=== PATIENT | female | born 1995 | race Caucasian/White ===

== ENCOUNTER 2019-06-08 14:41 | Inpatient (IN) | payer BC ==
[~2019-06-08] VITALS: Ht 162.6 cm; Wt 90.7 kg
[~2019-06-08 14:41] MED LIST: IBUP-2070 PO; PREN1TAB80 PO
[2019-06-08 15:27] VITALS: BP 103/54
[2019-06-08] MEDS ORDERED: PREN-217 PO (15:27)
[2019-06-08] MEDS ORDERED: OXYTOCIN 30 UNITS/LACT RINGERS 500 ML IV ONE (18:01)
[2019-06-08] MEDS ORDERED: RINGERS SOLUTION,LACTATED 1,000 ML IV PRN (18:01)
[2019-06-08] MEDS ORDERED: METHYLERGONOVINE MALEATE 0.2 MG/ML VIAL IM PRN (18:15)
[2019-06-08] MEDS ORDERED: LIDOCAINE/PF 1% 30 ML VIAL INJ PRN (18:15)
[2019-06-08] MEDS ORDERED: AMPICILLIN SODIUM 2 GM/NS 100 ML IV ONE (18:15)
[2019-06-08] MEDS ORDERED: MISOPROSTOL 25 MCG TABLET PO ONE (18:15)
[2019-06-08] MEDS ORDERED: METOCLOPRAMIDE HCL 5 MG/ML 2 ML VIAL IVP PRN (18:15)
[2019-06-08] MEDS ORDERED: FentaNYL CITRATE-PF 100 MCG/2 ML VIAL IVP PRN (18:15)
[2019-06-08] MEDS ORDERED: CITRIC ACID/SODIUM CITRATE 30 ML SOLUTION UDCUP PO PRN (18:15)
[2019-06-08] MEDS: RINGERS SOLUTION,LACTATED 1,000 ML IV SCH ×2 (18:29→23:38)
[2019-06-08 19:18] LABS: BASOPHILS % (AUTO) 0.4 % (0.0-2.0); EOSINOPHILS % (AUTO) 0.5 % (1.0-6.0); HEMATOCRIT 35.5 % (36-46); HEMOGLOBIN 12.1 g/dL (12.0-16.0); LYMPHOCYTES # (AUTO) 1.6 K/uL (1.0-4.8); LYMPHOCYTES % (AUTO) 16.2 % (22.0-44.0); MEAN CORPUSCULAR HEMOGLOBIN 31.6 pg (26.0-34.0); MEAN CORPUSCULAR VOLUME 93 fL (80-100); MONOCYTES # (AUTO) 0.7 K/uL (0.1-1.0); MONOCYTES % (AUTO) 6.6 % (2.0-9.0); NEUTROPHILS # (AUTO) 7.6 K/uL (1.8-7.7); NEUTROPHILS % (AUTO) 76.3 % (40.0-70.0); PLATELET COUNT (AUTO)-OB 147 K/uL (150-450); RED BLOOD CELL COUNT(AUTO) 3.83 MIL/uL (4.00-5.20); RED CELL DISTRIBUTION WIDTH 12.4 % (11.5-14.5)
[2019-06-08] MEDS ORDERED: OXYGEN THERAPY IH SCH (20:00)
[2019-06-08] MEDS ORDERED: CHLORHEXIDINE GLUCONATE 4% 118 ML TOPICAL LIQUID TP ONE (20:45)
[2019-06-08] MEDS ORDERED: OXYTOCIN 30 UNITS/LACT RINGERS 500 ML IV PRN (22:58)
[2019-06-09] MEDS ORDERED: ROPIVACAINE HCL/PF 0.2% 100 ML ED ONE (00:27)
[2019-06-09] MEDS ORDERED: ROPIVACAINE HCL/PF 0.2% 100 ML ED PRN (01:00)
[2019-06-09] MEDS ORDERED: ONDANSETRON HCL 4 MG/2 ML VIAL IVP PRN (01:00)
[2019-06-09] MEDS ORDERED: DiphenhydrAMINE HCL 50 MG/ML VIAL IVP PRN (01:00)
[2019-06-09] MEDS: RINGERS SOLUTION,LACTATED 1,000 ML IV SCH ×2 (01:16→05:05)
[2019-06-09] MEDS: AMPICILLIN SODIUM 1 GM/NS 50 ML IV SCH ×2 (02:34→06:26)
[2019-06-09] MEDS ORDERED: RINGERS SOLUTION,LACTATED 1,000 ML IV ONE (09:33)
[2019-06-09] MEDS ORDERED: OxyCODONE HCL/ACETAMINOPHEN 5-325 MG TABLET PO PRN ×2 (09:45)
[2019-06-09] MEDS ORDERED: GLYCERIN/WITCH HAZEL LEAF 40 PADS JAR TP PRN (09:45)
[2019-06-09] MEDS ORDERED: BENZOCAINE 20%/MENTHOL 56 GM SPRAY CANISTER TP PRN (09:45)
[2019-06-09] MEDS ORDERED: MEASLES/MUMPS/RUBELLA VACCINE, LIVE 0.5 ML/VIAL SQ ONE (09:45)
[2019-06-09] MEDS ORDERED: LANOLIN 7 GM OINTMENT TP PRN (09:45)
[2019-06-09] MEDS: IBUPROFEN 600 MG TABLET PO PRN ×2 (14:57→20:58)
[2019-06-09] MEDS ORDERED: INFLUENZA VIRUS VACCINE QVS 2019-20 (3YR+)/PF 60 MCG/0.5 ML SYRINGE IM ONE (17:45)
[2019-06-09] MEDS ORDERED: MAGNESIUM HYDROXIDE SUSPENSION 30 ML UDCUP PO SCH (21:00)
[2019-06-10] MEDS ORDERED: DOCU-275 PO (08:41)
== END 2019-06-10 11:35 | disposition home or self-care (01) | DRG 807 ==
LOC: 4S 14:41 → OBSVTOIN 14:41
PROVIDERS: ADMIT Obstetrics & Gynecology; ATTEND Obstetrics & Gynecology
PROC: 10E0XZZ Delivery of Products of Conception, External Approach (ICD-10-PCS; principal; 2019-06-09)
PROC: 3E0R3BZ Introduction of Anesthetic Agent into Spinal Canal, Percutaneous Approach (ICD-10-PCS; 2019-06-09)
PROC: 00HU33Z Insertion of Infusion Device into Spinal Canal, Percutaneous Approach (ICD-10-PCS; 2019-06-09)
DX: O99.824 Streptococcus B carrier state complicating childbirth (principal); Z37.0 Single live birth; Z3A.39 39 weeks gestation of pregnancy
CPT/HCPCS: 76811; 86850; 86900; 86901; 89060; 90686; J0290; J2590; J2795; J7120